=== PATIENT | female | born 1950 | race Caucasian/White ===

== ENCOUNTER → 2022-10-14 | Outpatient (CLI) | payer MEDICARE ==
[2022-10-14 14:16] VITALS: BP 135/85; PULSE 84; TEMP 97.9; BMI 31.8
--- NOTE | 2022-11-04 15:24 | P.HPBAR ---
Bariatric H&P - History & Physicial H&P Date: 10/14/22 History & Physicial: Visit/CC: lap band Patient initial contact: Initial weight: Initial weight in pounds: Height: 5 ft Initial BMI: Last weight: Current weight: 73.936 kg Current weight in pounds: 163.00 Current BMI: 31.8 [place] body weight (based on NIH guidelines): 45.359 kg Excess body weight loss: The patient is a 72 year-old F who presents for Bariatric Assessment. Patient presents today for LAP-BAND follow-up. She is requesting her band to be empty. She is undergoing knee surgery in the next few weeks. Past Medical History Past Medical History: GERD/Reflux Additional Past Medical History / Comment(s): two strokes in 80s History of Any Multi-Drug Resistant Organisms: None Reported Past Surgical History: Bariatric Surgery, Tubal Ligation Additional Past Surgical History / Comment(s): lap band, left wrist metal plate, bilateral knee orthoscopic, gland removed from neck that was enlarged, left eye cataract removal, and reattched retna, Past Anesthesia/Blood Transfusion Reactions: Motion Sickness Additional Past Anesthesia/Blood Transfusion Reaction / Comm: can't get warm and when wakes cannot get warm Past Psychological History: No Psychological Hx Reported Smoking Status: Former smoker Past Alcohol Use History: Daily, Occasional Past Drug Use History: None Reported Additional Drug Use History / Comment(s): quit smoking 25 years ago Surgical - Exam Vital Signs Temp Pulse BP 97.9 F 84 135/85 10/14/22 14:11 10/14/22 14:11 10/14/22 14:11 - General well developed, well nourished, no distress - Eyes PERRL - ENT normal pinna - Neck no masses - Respiratory normal expansion - Abdomen Abdomen: soft, non tender Bariatric Assessment & Plan Plan: Patient's LAP-BAND was entered. 5.8 mL removed the band. She will follow-up after her knee surgery for fluid replacement Bariatric Checklist Checklist: Plan: Checklist: EGD: 1. Hiatal hernia: 2. H. Pylori: HgbA1c: Vitamin D: Smoking: Former smoker Primary care physician referral: Dr. Redd Psychiatry clearance: Cardiology clearance: Sleep study: Diet journal: VTE risk score: VTE risk level: Rehab needs at discharge:
== END | disposition home or self-care (01) ==
LOC: BARWHC3 13:28
PROVIDERS: ATTEND Surgery
DX: E66.01 Morbid (severe) obesity due to excess calories (principal); Z46.51 Encounter for fitting and adjustment of gastric lap band; Z87.891 Personal history of nicotine dependence; Z98.84 Bariatric surgery status; K21.9 Gastro-esophageal reflux disease without esophagitis; Z68.31 Body mass index [BMI] 31.0-31.9, adult
CPT/HCPCS: 99212

== ENCOUNTER → 2023-08-15 | Outpatient (CLI) | payer MEDICARE ==
[2023-08-15 17:50] LABS: African American GFR (CKD) >90 (>60 ml/min/1.73 sqM); Blood Urea Nitrogen 15 mg/dL (7-17); Non-African American GFR(CKD) >90 (>60 ml/min/1.73 sqM)
--- NOTE | 2023-08-18 08:43 | CT ---
EXAMINATION TYPE: CT abdomen wo/w con DATE OF EXAM: 08/15/2023 COMPARISON: 04/16/2000 HISTORY: Chronic abdominal pain CT DLP: 1319.5 mGycm Automated exposure control for dose reduction was used. TECHNIQUE: Helical acquisition of images was performed from the lung bases through the top of iliac crest to include entire abdomen. CONTRAST: Performed with Oral Contrast and without and with IV Contrast, patient injected with 100 cc mL of Iso fredy 300. FINDINGS: LUNG BASES: No significant abnormality is appreciated. LIVER/GB: Multiple hypodensities are seen within the liver some of which are too small to characteriz e. The largest measures 7 Hounsfield units and 2.7 cm compatible with simple cysts. No gallstones. PANCREAS: No significant abnormality is seen. SPLEEN: No significant abnormality is seen. ADRENALS: Mild thickening of left adrenal gland too small to characterize likely representing benign adenoma or hyperplasia KIDNEYS: Subcentimeter hypodensity within the right kidney too small to characterize. Statistically m ost likely related to a simple cyst BOWEL: Previous lap band surgery noted bowel gas pattern demonstrates no evidence of obstruction. Re tained debris throughout the colon. Small hiatal hernia. LYMPH NODES: No significant abnormality is seen. OSSEOUS STRUCTURES: Hypertrophic and degenerative changes of the spine. Grade 1 anterolisthesis L4-5 and retrolisthesis L1-2. FREE AIR: No free air is visualized. OTHER: Aorta of normal caliber. IMPRESSION: 1. POST LAP BAND SURGERY WITH SMALL HIATAL HERNIA OR DILATED DISTAL ESOPHAGUS CONSIDER UPPER GI. 2. HEPATIC CYSTS.
== END | disposition home or self-care (01) ==
LOC: RADCTMAIN 17:00
PROVIDERS: ATTEND Family Medicine
DX: K76.89 Other specified diseases of liver (principal); K44.9 Diaphragmatic hernia without obstruction or gangrene; Z98.84 Bariatric surgery status
CPT/HCPCS: 82565; 84520; 74170; 36415; Q9967

== ENCOUNTER 2023-09-01 11:56 | Day surgery (SDC) | payer MEDICARE ==
[2023-08-29 09:43] VITALS: BMI 31.2
[~2023-09-01 11:56] MED LIST: LACTATED RINGERS 1,000 ML IV SCH; LIDOCAINE 1% (10MG/ML) FOR IV START INTRADERMA PRN
[2023-09-01 12:29] VITALS: TEMP 96.9
[2023-09-01] MEDS ORDERED: LIDOCAINE 1% INJ 10MG/ML (20 ML MDV) ONE (12:48)
[2023-09-01] MEDS ORDERED: PROPOFOL 10 MG/ML 20 ML VIAL IV ONE (12:48)
--- NOTE | 2023-09-01 12:51 | P.GSHP ---
History of Present Illness H&P Date: 09/01/23 Chief Complaint: GERD This a 72-year-old female presents today for EGD. Patient's with GERD. Past Medical History Past Medical History: CVA/TIA, GERD/Reflux Additional Past Medical History / Comment(s): two strokes in 80s History of Any Multi-Drug Resistant Organisms: None Reported Past Surgical History: Bariatric Surgery, Joint Replacement, Orthopedic Surgery, Tubal Ligation Additional Past Surgical History / Comment(s): lap band, left wrist metal plate, bilateral knee orthoscopic, gland removed from neck that was enlarged, left eye cataract removal, and reattched retna, bunion removed right toe Past Anesthesia/Blood Transfusion Reactions: Motion Sickness Additional Past Anesthesia/Blood Transfusion Reaction / Comment(s): can't get warm and when wakes cannot get warm Smoking Status: Former smoker Medications and Allergies Home Medications Medication Instructions Recorded Confirmed Type Cholecalciferol (Vitamin D3) 10,000 unit PO DAILY 06/24/16 08/29/23 History [Vitamin D3] Famotidine [Pepcid] 20 mg PO BID 06/24/16 09/01/23 History Magnesium 200 mg PO DAILY 06/24/16 08/29/23 History Multivitamins, Thera [Multivitamin] 1 tab PO DAILY 06/24/16 08/29/23 History Potassium 99 mg PO DAILY 06/24/16 08/29/23 History Vitamin B Complex 1 each PO DAILY 06/24/16 08/29/23 History Allergies Allergy/AdvReac Type Severity Reaction Status Date / Time Penicillins Allergy Dyspnea Verified 08/29/23 09:17 Surgical - Exam Vital Signs Temp Pulse Resp BP Pulse Ox 96.9 F L 113 H 20 141/77 94 L 09/01/23 12:20 09/01/23 12:20 09/01/23 12:20 09/01/23 12:20 09/01/23 12:20 - General well developed, well nourished, no distress - Eyes PERRL - ENT normal pinna - Neck no masses - Respiratory normal expansion - Cardiovascular Rhythm: regular - Abdomen Abdomen: soft, non tender Assessment and Plan Assessment: GERD. We'll perform EGD.
--- NOTE | 2023-09-01 13:00 | P.OP ---
Date of Procedure: 09/01/23 Preoperative Diagnosis: GERD Postoperative Diagnosis: Antral gastritis Procedure(s) Performed: EGD Anesthesia: MAC Surgeon: Nicolas Huang Pathology: other (Antrum) Condition: stable Disposition: PACU Description of Procedure: The patient's placed on the endoscopy table in the lateral position. She rece ived IV sedation. The gastroscope placed oropharynx passed in the esophagus and stomach. Scope was then placed through the pylorus. The first and second portion of the duodenum appeared normal. Scope summer back the antrum this. Mildly inflamed. A biopsies performed. The scope was then retroflexed and the remainder the stomach appeared normal. Patient appears placed LAP-BAND device. This without evidence of inflation erosion. The GE junction was at 40 cm. There is no significant hiatal hernia. The distal esophagus appeared normal. The proximal esophagus appeared normal. Scope withdrawn for patient.
[2023-09-01 13:59] VITALS: BP 134/78; PULSE 89; RESP 18
== END 2023-09-01 13:30 | disposition home or self-care (01) ==
LOC: ORWHC2ENDO 11:56
PROVIDERS: ATTEND Surgery
DX: K29.50 Unspecified chronic gastritis without bleeding (principal); K21.9 Gastro-esophageal reflux disease without esophagitis; Z86.73 Personal history of transient ischemic attack (TIA), and cerebral infarction without residual deficits; Z98.51 Tubal ligation status; Z98.890 Other specified postprocedural states; Z88.0 Allergy status to penicillin; Z79.899 Other long term (current) drug therapy
CPT/HCPCS: 43239; J2001; J2704; 88305

== ENCOUNTER 2024-07-12 09:09 | Day surgery (SDC) | payer MEDICARE ==
[2024-07-09 09:37] VITALS: BMI 29.7
[~2024-07-12 09:09] MED LIST changes: -LACTATED RINGERS 1,000 ML IV SCH
[2024-07-12 10:11] VITALS: RESP 16; TEMP 97.2
[2024-07-12] MEDS: IV FLUID CONTINUATION 1,000 ML IV ONE (10:14)
[2024-07-12] MEDS: LACTATED RINGERS 1,000 ML IV SCH (10:16)
[2024-07-12] MEDS ORDERED: PROPOFOL 10 MG/ML 20 ML VIAL IV ONE (10:19)
--- NOTE | 2024-07-12 10:24 | P.GSHP ---
History of Present Illness H&P Date: 07/12/24 Chief Complaint: Screening colonoscopy Is a 73-year-old female who presents today for screening colonoscopy. Patient denies any significant GI complaints. Past Medical History Past Medical History: Cancer, CVA/TIA, GERD/Reflux Additional Past Medical History / Comment(s): Hx CVA X2 in the 80's. Hx skin cancer - removed. History of Any Multi-Drug Resistant Organisms: None Reported Past Surgical History: Bariatric Surgery, Orthopedic Surgery, Tubal Ligation Additional Past Surgical History / Comment(s): Lap band, left wrist - metal plate placed, bilateral knee arthoscopy, enlarged gland removed from neck, left eye cataract removed and reattachment of retina, left partial knee replacement. Past Anesthesia/Blood Transfusion Reactions: Motion Sickness Additional Past Anesthesia/Blood Transfusion Reaction / Comment(s): Wakes up from Anesthesia freezing cold and has trouble warmimg up. Smoking Status: Former smoker - Past Family History Mother Family Medical History: Cancer Additional Family Medical History / Comment(s): Non Hodgkins Lymphoma. Father Family Medical History: Cancer Additional Family Medical History / Comment(s): Prostate cancer. Sister(s) Family Medical History: Cancer Additional Family Medical History / Comment(s): Breast cancer. Medications and Allergies Home Medications Medication Instructions Recorded Confirmed Type Multivitamins, Thera [Multivitamin] 1 tab PO DAILY 06/24/16 07/09/24 History Potassium 99 mg PO DAILY 06/24/16 07/09/24 History Airborne. 1 tab PO DAILY 07/09/24 07/09/24 History Coffee Xt/Phosphatidyl Serine 1 cap PO DAILY 07/09/24 07/09/24 History [Neuriva Original 100-100Mg Cap] Iron (Unknown Dose) 1 tab PO DAILY 07/09/24 07/09/24 History Allergies Allergy/AdvReac Type Severity Reaction Status Date / Time Penicillins Allergy Dyspnea Verified 07/12/24 10:10 Surgical - Exam Vital Signs Temp Pulse Resp BP Pulse Ox 97.2 F L 75 16 186/86 97 07/12/24 10:10 07/12/24 10:10 07/12/24 10:10 07/12/24 10:10 07/12/24 10:10 - General well developed, well nourished, no distress - Eyes PERRL - ENT normal pinna - Neck no masses - Respiratory normal expansion - Cardiovascular Rhythm: regular - Abdomen Abdomen: soft, non tender Assessment and Plan Assessment: Will perform screening colonoscopy.
--- NOTE | 2024-07-12 10:44 | P.OP ---
Date of Procedure: 07/12/24 Preoperative Diagnosis: Screening colonoscopy Postoperative Diagnosis: Mild diverticulosis Procedure(s) Performed: Colonoscopy Anesthesia: MAC Surgeon: Nicolas Huang Pathology: none sent Condition: stable Disposition: PACU Description of Procedure: The patient was placed on the endoscopy table in the lateral position. She received IV sedation. Digital rectal exam was performed. This revealed no abnormalities. Flexible colonoscope was then placed patient anus and passed throughout the entire colon. The ileocecal valve was visualized. The cecum, ascending and transverse colon appeared normal. The descending and sigmoid colon had mild diverticulosis. Scope Cinobac rectum appeared normal. Scope withdrawn for the patient.
[2024-07-12 11:03] VITALS: BP 129/67; PULSE 71
== END 2024-07-12 11:17 | disposition home or self-care (01) ==
LOC: ORWHC2ENDO 09:09
PROVIDERS: ATTEND Surgery
DX: Z12.11 Encounter for screening for malignant neoplasm of colon